=== PATIENT | female | born 1970 | race American Indian/Alaskan Native ===

== ENCOUNTER 2016-05-29 13:54 | Outpatient (CLI) | payer OTHER ==
--- NOTE | 2016-05-29 16:04 | Mammography Report ---
BILATERAL MAMMOGRAM: FINDINGS: The breasts are almost entirely fat (<25% glandular). No mass, distortion, suspicious calcification, or skin change is seen. CAD was utilized. IMPRESSION: Negative mammogram. There is no mammographic evidence of malignancy. RECOMMENDATION: Follow-up per ACS guidelines. BI-RADS CATEGORY: 1 = Negative ACR BI-RADS MAMMOGRAPHIC CODES: 0 = Needs additional imaging evaluation; 1 = Negative; 2 = Benign; 3 = Probably benign; 4 = Suspicious; 5 = Malignant; 6 = Known biopsy-proven malignancy COMMENT: 1. Dense breast tissue, i.e., adenosis, fibrocystic changes, etc., may obscure an underlying neoplasm. 2. Approximately 10% of cancers are not detected with mammography. 3. A negative mammography report should not delay biopsy if a clinically suspicious mass is present. COMMENT: Patient follow-up letters are generated in [facility].
== END 2016-05-29 13:55 | disposition home or self-care (01) ==
LOC: MAMMO 13:54
PROVIDERS: ATTEND Family Medicine
DX: Z12.31 Encounter for screening mammogram for malignant neoplasm of breast (principal)
CPT/HCPCS: 77067; G0202

== ENCOUNTER 2016-12-05 19:04 | Emergency (ER) | payer OTHER ==
[2016-12-05 19:38] VITALS: BP 195/118
[2016-12-05] MEDS ORDERED: CATAPRES ONE (19:40)
[2016-12-05] MEDS ORDERED: CATAPRES PO ONE (19:43)
[2016-12-05 20:15] LABS: Basophils % (Auto) 0.9 % (0.0-1.8); Eosinophils % (Auto) 1.9 % (0.0-4.3); Hematocrit 39.6 % (30.3-42.9); Hemoglobin 12.7 gm/dl (10.1-14.3); Mean Corpuscular HGB Conc 32 % (30-34); Mean Corpuscular Hemoglobin 27 pg (28-32); Mean Corpuscular Volume 84 fl (79-97); Platelet Count 273 K/mm3 (140-440); Red Blood Count 4.73 M/mm3 (3.65-5.03); White Blood Count 9.6 K/mm3 (4.5-11.0)
[2016-12-05 20:36] LABS: Anion Gap 18 mmol/L; BUN/Creatinine Ratio 15.71; Blood Urea Nitrogen 11 mg/dL (7-17); Carbon Dioxide 27 mmol/L (22-30); Chloride 101.1 mmol/L (98-107); Glucose 188 mg/dL (65-100); Potassium 4.9 mmol/L (3.6-5.0); Sodium 141 mmol/L (137-145)
--- NOTE | 2016-12-08 01:42 | ED Elopement Review ---
ED Pt Elopement review - Results review Lab results: Laboratory Tests 12/05/16 12/05/16 12/05/16 19:32 20:02 20:02 WBC 9.6 RBC 4.73 Hgb 12.7 Hct 39.6 MCV 84 MCH 27 L MCHC 32 RDW 16.0 H Plt Count 273 Lymph % (Auto) 32.8 Mcdowell % (Auto) 6.7 Eos % (Auto) 1.9 Baso % (Auto) 0.9 Lymph # 3.2 Mcdowell # 0.6 Eos # 0.2 Baso # 0.1 Seg Neutrophils % 57.7 Seg Neutrophils # 5.6 Carbon Dioxide 27 BUN 11 Creatinine 0.7 Estimated GFR > 60 BUN/Creatinine Ratio 15.71 Glucose 188 H POC Glucose 205 H Calcium 10.0 Troponin T < 0.010 - Call Back decision Pt Call Back Decision: No action required
== END 2016-12-05 23:30 | disposition left against medical advice (07) ==
LOC: ED 19:04
DX: M25.512 Pain in left shoulder (principal); M54.2 Cervicalgia; Z53.21 Procedure and treatment not carried out due to patient leaving prior to being seen by health care provider
CPT/HCPCS: 36415; 80048; 82962; 84484; 85025; 93005; 93010